=== PATIENT | female | born 1965 | race African-American/Black ===

== ENCOUNTER 2022-01-19 04:40 | Inpatient (IN) | payer MEDICAID, OTHER ==
[~2022-01-19] VITALS: Ht 165.1 cm; Wt 85.5 kg
[2022-01-19 06:53] VITALS: BP_SYST 144
[2022-01-19 10:16] LABS: BASOPHILS # (AUTO) 0.1 K/uL (0.0-0.2); BASOPHILS % (AUTO) 0.7 % (0.0-2.0); EOSINOPHILS % (AUTO) 0.3 % (0.0-4.0); HEMATOCRIT 36.6 % (36-48); HEMOGLOBIN 12.2 g/dL (12.0-16.0); LYMPHOCYTES % (AUTO) 10.5 % (20.5-51.5); MEAN CORPUSCULAR HEMOGLOBIN 30 pg (27-31); MEAN CORPUSCULAR HGB CONC 33 % (32-36); MEAN CORPUSCULAR VOLUME 91 fL (79.0-98.0); MONOCYTES # (AUTO) 1.6 K/uL (0.0-1.0); MONOCYTES % (AUTO) 17.3 % (1.7-9.3); NEUTROPHILS # (AUTO) 6.6 K/uL (1.8-7.7); NEUTROPHILS % (AUTO) 71.2 % (40.0-70.0); PLATELET COUNT (AUTO) 372 K/uL (130-430); RED BLOOD CELL COUNT(AUTO) 4.02 MIL/uL (4.2-6.2); RED CELL DISTRIBUTION WIDTH 13.9 % (9.0-15.0); WHITE BLOOD COUNT (AUTO) 9.2 K/uL (4.8-10.8)
[2022-01-19 10:40] LABS: ANION GAP 8 (5-15); CALCIUM 9.1 mg/dL (8.4-11.0); CHLORIDE 103 mmol/L (98-107); CREATININE 0.77 mg/dL (0.55-1.30); GLUCOSE 113 mg/dL (70-99); UREA NITROGEN, BLOOD 14 mg/dL (8-21)
[2022-01-19 10:41] LABS: GFR AFRICAN AMERICAN 99 mL/min (>90)
[2022-01-19 10:53] LABS: ALANINE AMINOTRANSFERASE 38 U/L (12-78); ALBUMIN 3.7 g/dL (3.4-4.8); ASPARTATE AMINOTRANSFERASE 26 U/L (10-37); THYROID STIMULATING HORMONE 0.93 uIu/mL (0.36-3.74); TOTAL BILIRUBIN 0.5 mg/dL (0.0-1.0)
[2022-01-19 10:56] LABS: ALCOHOL, BLOOD < 3 mg/dL (<10)
[2022-01-19] MEDS ORDERED: OLANZapine 5 MG TABLET PO ONE (13:00)
[2022-01-19] MEDS ORDERED: CHOLECALCIFEROL (VITAMIN D3) 5,000 UNIT TABLET PO ONE (13:00)
[2022-01-19] MEDS ORDERED: HALOPERIDOL LACTATE 5 MG/ML VIAL IM ONE ×2 (14:30→21:15)
[2022-01-19] MEDS ORDERED: MIDAZOLAM HCL 5 MG/5 ML VIAL IM ONE ×2 (14:30→21:15)
[2022-01-19] MEDS: ASCORBIC ACID 500 MG TABLET PO SCH ×2 (21:00→22:56)
[2022-01-19] MEDS ORDERED: HALOPERIDOL LACTATE 5 MG/ML VIAL ONE (21:07)
[2022-01-19] MEDS ORDERED: MIDAZOLAM HCL 5 MG/5 ML VIAL ONE (21:08)
[2022-01-19] MEDS: OLANZapine 5 MG TABLET PO SCH (22:57)
[2022-01-20] VITALS (7 sets, daily range): BP systolic 100–129
[2022-01-20] MEDS ORDERED: HALOPERIDOL LACTATE 5 MG/ML VIAL IM ONE (04:30)
[2022-01-20] MEDS ORDERED: HALOPERIDOL LACTATE 5 MG/ML VIAL ONE (04:32)
[2022-01-20] MEDS ORDERED: LORazepam 2 MG/ML VIAL IM ONE (06:00)
[2022-01-20] MEDS ORDERED: LORazepam 2 MG/ML VIAL ONE (06:20)
[2022-01-20 07:03] LABS: CALCIUM 8.8 mg/dL (8.4-11.0); CREATININE 0.74 mg/dL (0.55-1.30)
[2022-01-20 07:07] LABS: BASOPHILS # (AUTO) 0.2 K/uL (0.0-0.2); BASOPHILS % (AUTO) 1.4 % (0.0-2.0); EOSINOPHILS % (AUTO) 0.3 % (0.0-4.0); HEMATOCRIT 37.2 % (36-48); HEMOGLOBIN 12.3 g/dL (12.0-16.0); LYMPHOCYTES # (AUTO) 1.4 K/uL (1.0-5.5); LYMPHOCYTES % (AUTO) 10.9 % (20.5-51.5); MEAN CORPUSCULAR HEMOGLOBIN 31 pg (27-31); MEAN CORPUSCULAR HGB CONC 33 % (32-36); MEAN CORPUSCULAR VOLUME 92 fL (79.0-98.0); MONOCYTES # (AUTO) 1.5 K/uL (0.0-1.0); MONOCYTES % (AUTO) 11.6 % (1.7-9.3); NEUTROPHILS # (AUTO) 9.8 K/uL (1.8-7.7); NEUTROPHILS % (AUTO) 75.8 % (40.0-70.0); PLATELET COUNT (AUTO) 403 K/uL (130-430); RED BLOOD CELL COUNT(AUTO) 4.03 MIL/uL (4.2-6.2); RED CELL DISTRIBUTION WIDTH 13.8 % (9.0-15.0); WHITE BLOOD COUNT (AUTO) 12.9 K/uL (4.8-10.8)
[2022-01-20] MEDS: ASCORBIC ACID 500 MG TABLET PO SCH ×2 (09:25→21:40)
[2022-01-20] MEDS: CHOLECALCIFEROL (VITAMIN D3) 5,000 UNIT TABLET PO SCH (09:25)
[2022-01-20] MEDS: OLANZapine 5 MG TABLET PO SCH ×2 (09:25→21:40)
[2022-01-20] MEDS ORDERED: ACETAMINOPHEN 325 MG TABLET PO PRN (16:00)
[2022-01-20] MEDS ORDERED: ALBUTEROL MDI INHALATION 8 GM INH INH PRN (16:00)
[2022-01-20] MEDS ORDERED: *LOVENOX 1MG/KG Q24H/PHARMACY XX ONE (16:00)
[2022-01-20] MEDS ORDERED: ONDANSETRON HCL 4 MG/2 ML VIAL IVP PRN (16:00)
[2022-01-20] MEDS ORDERED: guaiFENesin/DEXTROMETHORPHAN 1 EACH TAB.ER.12H PO PRN (16:15)
[2022-01-20] MEDS: ENOXAPARIN SODIUM 80 MG/0.8 ML SYRINGE SUBCUT SCH (21:00)
[2022-01-21 04:00] VITALS: BP_SYST 119
[2022-01-21 07:34] LABS: CALCIUM 8.4 mg/dL (8.4-11.0); CREATININE 0.73 mg/dL (0.55-1.30)
[2022-01-21 08:04] LABS: BASOPHILS # (AUTO) 0.1 K/uL (0.0-0.2); BASOPHILS % (AUTO) 0.8 % (0.0-2.0); HEMOGLOBIN 12.1 g/dL (12.0-16.0); LYMPHOCYTES % (AUTO) 8.7 % (20.5-51.5); MEAN CORPUSCULAR HEMOGLOBIN 31 pg (27-31); MEAN CORPUSCULAR HGB CONC 34 % (32-36); MEAN CORPUSCULAR VOLUME 91 fL (79.0-98.0); MONOCYTES # (AUTO) 1.3 K/uL (0.0-1.0); MONOCYTES % (AUTO) 11.3 % (1.7-9.3); NEUTROPHILS # (AUTO) 9.2 K/uL (1.8-7.7); NEUTROPHILS % (AUTO) 79.2 % (40.0-70.0); PLATELET COUNT (AUTO) 317 K/uL (130-430); RED BLOOD CELL COUNT(AUTO) 3.95 MIL/uL (4.2-6.2); RED CELL DISTRIBUTION WIDTH 13.8 % (9.0-15.0); WHITE BLOOD COUNT (AUTO) 11.6 K/uL (4.8-10.8)
[2022-01-21] MEDS: OLANZapine 5 MG TABLET PO SCH ×2 (09:27→19:55)
[2022-01-21] MEDS: ASCORBIC ACID 500 MG TABLET PO SCH ×2 (09:27→19:57)
[2022-01-21] MEDS: CHOLECALCIFEROL (VITAMIN D3) 5,000 UNIT TABLET PO SCH (09:27)
[2022-01-21] MEDS: MULTIVITS,CA,MINERALS/IRON/FA 1 TABLET PO SCH (09:28)
[2022-01-21 10:00] VITALS: BP_SYST 106
[2022-01-21 17:21] VITALS: BP_SYST 106
[2022-01-21] MEDS: ENOXAPARIN SODIUM 80 MG/0.8 ML SYRINGE SUBCUT SCH (19:58)
[2022-01-21 20:00] VITALS: BP_SYST 106
[2022-01-22 04:00] VITALS: BP_SYST 97
[2022-01-22] MEDS: CHOLECALCIFEROL (VITAMIN D3) 5,000 UNIT TABLET PO SCH (08:40)
[2022-01-22] MEDS: OLANZapine 5 MG TABLET PO SCH (08:40)
[2022-01-22] MEDS: ASCORBIC ACID 500 MG TABLET PO SCH (08:41)
[2022-01-22] MEDS: MULTIVITS,CA,MINERALS/IRON/FA 1 TABLET PO SCH (08:41)
[2022-01-22 10:00] VITALS: BP_SYST 100
== END 2022-01-22 16:15 | disposition left against medical advice (07) | DRG 189 ==
LOC: SED 04:40 → SMU 11:20 → SIC 01-20 10:10
PROVIDERS: ADMIT Specialist; ATTEND Specialist
DX: J96.01 Acute respiratory failure with hypoxia (principal); U07.1 COVID-19; F23 Brief psychotic disorder; F31.64 Bipolar disorder, current episode mixed, severe, with psychotic features; D72.829 Elevated white blood cell count, unspecified
CPT/HCPCS: 36415; 80048; 80053; 84443; 85025; 99285; G0482; J1630; J1650; J2060; J2250

== ENCOUNTER 2023-01-20 08:50 | Emergency (ER) | payer OTHER ==
[~2023-01-20] VITALS: Ht 162.6 cm; Wt 72.6 kg
[2023-01-20 09:46] VITALS: BP_SYST 158; PULSE 86; RESP 20; TEMP 97.6; O2SAT 100
== END 2023-01-20 10:07 | disposition left against medical advice (07) ==
LOC: SED 08:50
DX: Z13.6 Encounter for screening for cardiovascular disorders (principal)
CPT/HCPCS: 99281

== ENCOUNTER 2023-11-06 08:52 | Outpatient (CLI) | payer OTHER ==
[2023-11-06] MEDS ORDERED: DIATR MEGLU/DIATRIZ SOD 30 ML SOLUTION PO ONE (10:36)
== END 2023-11-06 18:54 | disposition home or self-care (01) ==
LOC: SCT 08:52
PROVIDERS: ATTEND Internal Medicine
DX: R16.0 Hepatomegaly, not elsewhere classified (principal); R19.8 Other specified symptoms and signs involving the digestive system and abdomen; I51.7 Cardiomegaly; K57.30 Diverticulosis of large intestine without perforation or abscess without bleeding; K43.9 Ventral hernia without obstruction or gangrene; M47.816 Spondylosis without myelopathy or radiculopathy, lumbar region; Z90.710 Acquired absence of both cervix and uterus; Z90.49 Acquired absence of other specified parts of digestive tract
CPT/HCPCS: 74176; Q9964; Q9967